=== PATIENT | male | born 1985 | race Caucasian/White ===

== ENCOUNTER 2020-03-31 21:47 | Emergency (ER) | payer OTHER ==
[~2020-03-31] VITALS: Ht 175.3 cm; Wt 82.6 kg
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
[2020-03-31 22:32] LABS: BASOPHILS # (AUTO) 0.1 /CMM (0.0-0.2); BASOPHILS % (AUTO) 1.2 % (0.0-2.0); EOSINOPHILS % (AUTO) 1.6 % (0.0-6.0); HEMATOCRIT 41 % (39-51); HEMOGLOBIN 14.1 g/dL (13.5-17.5); LYMPHOCYTES # (AUTO) 1.8 /CMM (0.8-4.8); LYMPHOCYTES % (AUTO) 40.9 % (20.0-44.0); MEAN CORPUSCULAR HGB CONC 34 g/dl (31.0-36.0); MEAN CORPUSCULAR VOLUME 100 fL (80-96); MONOCYTES # (AUTO) 0.3 /CMM (0.1-1.30); MONOCYTES % (AUTO) 6.9 % (2.0-12.0); NEUTROPHILS # (AUTO) 2.2 /CMM (1.8-8.9); NEUTROPHILS % (AUTO) 49.4 % (43.0-81.0); PLATELET COUNT (AUTO) 240 /CMM (150-450); RED BLOOD CELL COUNT(AUTO) 4.11 MIL/uL (4.5-6.0); WHITE BLOOD COUNT (AUTO) 4.4 K/uL (4.3-11.0)
--- NOTE | 2020-03-31 22:34 | NUR ---
PT RETURNED FROM CT
[2020-03-31 22:37] LABS: CALCIUM, SERUM 8.9 mg/dL (8.5-10.1); CARBON DIOXIDE 25 mmol/L (21-32); CHLORIDE 104 mmol/L (98-107); CREATININE 0.8 mg/dL (0.6-1.3); GLUCOSE 87 mg/dL (74-106); POTASSIUM 3.8 mmol/L (3.5-5.1); SODIUM SERUM 139 mmol/L (136-145); UREA NITROGEN, BLOOD 6 mg/dL (7-18)
[2020-03-31] MEDS ORDERED: CEFTRIAXONE 500 MG VIAL ONE (22:38)
[2020-03-31] MEDS ORDERED: LIDOCAINE /MPF 1% VIAL 5 ML VIAL ONE (22:39)
[2020-03-31] MEDS ORDERED: AZITHROMYCIN 250 MG TABLET ONE (22:39)
[2020-03-31 22:43] LABS: ALANINE AMINOTRANSFERASE 25 U/L (12-78); ALBUMIN 3.4 g/dL (3.4-5.0); ALCOHOL, BLOOD < 3 mg/dL (0-0); ALKALINE PHOSPHATASE 82 U/L (46-116); ASPARTATE AMINOTRANSFERASE 30 U/L (15-37); BILIRUBIN,DIRECT 0.1 mg/dL (0.0-0.2); BILIRUBIN,TOTAL 0.2 mg/dL (0.2-1.0); TOTAL PROTEIN, SERUM 7.7 g/dL (6.4-8.2)
[2020-03-31] MEDS: CEFTRIAXONE 500 MG VIAL IM ONE (22:46)
[2020-03-31] MEDS: AZITHROMYCIN 250 MG TABLET PO ONE (22:46)
[2020-03-31 22:49] LABS: BILIRUBIN,URINE NEGATIVE (NEGATIVE); BLOOD, URINE NEGATIVE Ery/uL (NEGATIVE); COLOR,URINE YELLOW (YELLOW); LEUKOCYTE ESTERASE ,URINE NEGATIVE (NEGATIVE); NITRITE, URINE NEGATIVE (NEGATIVE); PROTEIN,URINE NEGATIVE (NEGATIVE); UGLUCOSE NEGATIVE (NEGATIVE); UROBILINOGEN,URINE 0.2 EU/dL (0.2)
[2020-03-31 22:50] LABS: ACETAMINOPHEN < 10 ug/ml (10-30)
--- NOTE | 2020-03-31 23:36 | NUR ---
CLINICAL FAXED TO [facility] INTAKE FOR VOLUNTARY PSYCH ADMISSION.
--- NOTE | 2020-04-01 00:07 | NUR ---
pt verbalized that his plan is to jump off a bridge.
--- NOTE | 2020-04-01 02:20 | NUR ---
TRANSFER INFORMATION: PT ACCEPTED TO [facility] ACCEPTING MD: DR. MEDINA NUMBER FOR REPORT: [phone]
--- NOTE | 2020-04-01 02:31 | NUR ---
CALLED CALL THE CAR FOR TRANSPORTATION. WILL CALL BACK WITH ETA. RESERVATION #[id number]
--- NOTE | 2020-04-01 02:46 | NUR ---
MAAM-YDU-XRH CALLED REGARDING TRANSPORT ETA 90MIN ([facility]).
--- NOTE | 2020-04-01 02:59 | NUR ---
REPORT GIVEN TO JUSTIN ALVARADO FOR SHANTHI. BED ASSIGNMENT 531P
--- NOTE | 2020-04-01 03:22 | NUR ---
REPORT GIVEN [facility] FOR TRANSPORTATION SHANTHI. PT TRANSFERRED TO [facility] IN STABLE CONDITION
[2020-04-01 03:24] VITALS: BP 128/75
== END 2020-04-01 03:25 ==
LOC: EDSEX 21:50 → ER 21:50
DX: S09.90XA Unspecified injury of head, initial encounter (principal); Y09 Assault by unspecified means; Y92.89 Other specified places as the place of occurrence of the external cause; Z59.0 Homelessness; F15.10 Other stimulant abuse, uncomplicated; Z20.2 Contact with and (suspected) exposure to infections with a predominantly sexual mode of transmission; F32.9 Major depressive disorder, single episode, unspecified; R45.851 Suicidal ideations; Z20.828 Contact with and (suspected) exposure to other viral communicable diseases
CPT/HCPCS: 36415; 70450; 80048; 80076; 80299; 80307; 80320; 81001; 85025; 87426; 87491; 87591; 96372; 99285; C9803; J0696; J3490; G0480

== ENCOUNTER 2020-06-02 01:55 | Emergency (ER) | payer OTHER ==
[~2020-06-02] VITALS: Ht 175.3 cm; Wt 81.6 kg
--- NOTE | 2020-06-02 02:47 | NUR ---
.COVID SWAB COLLECTED AND SENT TO LAB
[2020-06-02 03:01] LABS: BASOPHILS % (AUTO) 0.8 % (0.0-2.0); EOSINOPHILS % (AUTO) 3.2 % (0.0-6.0); HEMATOCRIT 45 % (39-51); HEMOGLOBIN 15.2 g/dL (13.5-17.5); LYMPHOCYTES # (AUTO) 1.4 /CMM (0.8-4.8); MEAN CORPUSCULAR HGB CONC 34 g/dl (31.0-36.0); MEAN CORPUSCULAR VOLUME 97 fL (80-96); MONOCYTES # (AUTO) 0.3 /CMM (0.1-1.30); NEUTROPHILS # (AUTO) 1.4 /CMM (1.8-8.9); PLATELET COUNT (AUTO) 216 /CMM (150-450); RED BLOOD CELL COUNT(AUTO) 4.57 MIL/uL (4.5-6.0); WHITE BLOOD COUNT (AUTO) 3.2 K/uL (4.3-11.0)
[2020-06-02 03:34] LABS: BILIRUBIN,URINE NEGATIVE (NEGATIVE); COLOR,URINE YELLOW (YELLOW); LEUKOCYTE ESTERASE ,URINE NEGATIVE (NEGATIVE); NITRITE, URINE NEGATIVE (NEGATIVE); PROTEIN,URINE NEGATIVE (NEGATIVE); UGLUCOSE NEGATIVE (NEGATIVE); UROBILINOGEN,URINE 0.2 EU/dL (0.2)
[2020-06-02 04:34] LABS: CALCIUM, SERUM 9.6 mg/dL (8.5-10.1); CARBON DIOXIDE 24 mmol/L (21-32); CHLORIDE 103 mmol/L (98-107); CREATININE 0.9 mg/dL (0.6-1.3); GLUCOSE 85 mg/dL (74-106); POTASSIUM 3.9 mmol/L (3.5-5.1); SODIUM SERUM 138 mmol/L (136-145); UREA NITROGEN, BLOOD 15 mg/dL (7-18)
[2020-06-02 04:40] LABS: ALANINE AMINOTRANSFERASE 34 U/L (12-78); ALCOHOL, BLOOD 6 mg/dL (0-0); ALKALINE PHOSPHATASE 71 U/L (46-116); ASPARTATE AMINOTRANSFERASE 42 U/L (15-37); BILIRUBIN,DIRECT 0.2 mg/dL (0.0-0.2); BILIRUBIN,TOTAL 0.6 mg/dL (0.2-1.0); TOTAL PROTEIN, SERUM 8.3 g/dL (6.4-8.2)
[2020-06-02 04:43] LABS: ACETAMINOPHEN < 2 ug/ml (10-30)
--- NOTE | 2020-06-02 05:29 | NUR ---
Call from [facility]. Pt accepted to [facility] by Dr Bell. # for report [phone]
--- NOTE | 2020-06-02 05:33 | NUR ---
[facility] CALL THE CAR CALLED FOR TRANSPORT. TRIP# [id number]
[2020-06-02 05:51] VITALS: BP 129/71
--- NOTE | 2020-06-02 05:54 | NUR ---
REPORT GIVEN TO LONG ANDERSON FOR SHANTHI
--- NOTE | 2020-06-02 07:20 | NUR ---
Patient transported at [facility] by casino shift manager.
== END 2020-06-02 09:58 ==
LOC: ER 01:59
DX: R45.851 Suicidal ideations (principal); F12.10 Cannabis abuse, uncomplicated; Z20.822 Contact with and (suspected) exposure to COVID-19
CPT/HCPCS: 36415; 80048; 80076; 80299; 80307; 80320; 81003; 85025; 87426; 99285; C9803; G0480

== ENCOUNTER 2020-06-30 19:57 | Emergency (ER) | payer OTHER ==
[~2020-06-30] VITALS: Ht 175.3 cm; Wt 79.4 kg
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
--- NOTE | 2020-06-30 20:21 | NUR ---
JANNY HEAD AT BEDSIDE FOR RECTAL EXAM CHAPERONED BY ME
[2020-06-30] MEDS ORDERED: TDAP [DIPH/PERTUSSIS/TET] 0.5 ML VIAL IM ONE ×2 (20:30→20:48)
[2020-06-30 20:33] LABS: BASOPHILS % (AUTO) 0.6 % (0.0-2.0); EOSINOPHILS % (AUTO) 0.5 % (0.0-6.0); HEMATOCRIT 43 % (39-51); HEMOGLOBIN 15.1 g/dL (13.5-17.5); LYMPHOCYTES # (AUTO) 1.7 /CMM (0.8-4.8); LYMPHOCYTES % (AUTO) 35.7 % (20.0-44.0); MEAN CORPUSCULAR HGB CONC 35 g/dl (31.0-36.0); MEAN CORPUSCULAR VOLUME 95 fL (80-96); MONOCYTES # (AUTO) 0.4 /CMM (0.1-1.30); MONOCYTES % (AUTO) 9.5 % (2.0-12.0); NEUTROPHILS # (AUTO) 2.5 /CMM (1.8-8.9); NEUTROPHILS % (AUTO) 53.7 % (43.0-81.0); PLATELET COUNT (AUTO) 187 /CMM (150-450); RED BLOOD CELL COUNT(AUTO) 4.56 MIL/uL (4.5-6.0); WHITE BLOOD COUNT (AUTO) 4.6 K/uL (4.3-11.0)
[2020-06-30 20:53] LABS: CALCIUM, SERUM 8.7 mg/dL (8.5-10.1); CARBON DIOXIDE 26 mmol/L (21-32); CHLORIDE 102 mmol/L (98-107); CREATININE 0.8 mg/dL (0.6-1.3); GLUCOSE 103 mg/dL (74-106); POTASSIUM 3.3 mmol/L (3.5-5.1); SODIUM SERUM 138 mmol/L (136-145); UREA NITROGEN, BLOOD 6 mg/dL (7-18)
[2020-06-30 20:59] LABS: ACETAMINOPHEN < 2 ug/ml (10-30); ALANINE AMINOTRANSFERASE 65 U/L (12-78); ALBUMIN 3.4 g/dL (3.4-5.0); ALCOHOL, BLOOD 124 mg/dL (0-0); ALKALINE PHOSPHATASE 98 U/L (46-116); ASPARTATE AMINOTRANSFERASE 90 U/L (15-37); BILIRUBIN,DIRECT 0.1 mg/dL (0.0-0.2); BILIRUBIN,TOTAL 0.4 mg/dL (0.2-1.0)
[2020-06-30] MEDS ORDERED: IBUPROFEN 600 MG TABLET ONE (21:50)
[2020-06-30] MEDS ORDERED: IBUPROFEN 600 MG TABLET PO ONE (22:00)
[2020-06-30 22:02] LABS: BILIRUBIN,URINE Negative (NEGATIVE); COLOR,URINE YELLOW (YELLOW); LEUKOCYTE ESTERASE ,URINE Negative (NEGATIVE); NITRITE, URINE Negative (NEGATIVE); PH,URINE 6.5 (5.0-8.0); PROTEIN,URINE Negative (NEGATIVE); UGLUCOSE Negative (NEGATIVE); UROBILINOGEN,URINE 0.2 EU/dL (0.2)
--- NOTE | 2020-06-30 23:03 | NUR ---
COVID SWAB SEN TO LAB
--- NOTE | 2020-07-01 01:00 | NUR ---
Facesheet and clinical faxed to [facility].
--- NOTE | 2020-07-01 08:00 | NUR ---
PT ASLEEP, EASILY AWAKEN BY VERBAL STIMULI. DENIES CP, SOB, DIZZINESS, N/V AT THIS TIME. WILL CONT TO MONITOR. SITTER AT BS.
--- NOTE | 2020-07-01 11:27 | NUR ---
Patient Tranfers to outside Facility Physician:Dr. blackburn Location:[address] [address] number for report [phone]
--- NOTE | 2020-07-01 11:37 | NUR ---
CALLED [id number] TRANSFER # [phone] PER PAT. WILL CALL US WHEN THEY HAVE AMBULANCE.
--- NOTE | 2020-07-01 12:07 | NUR ---
TRANSPORT ETA 1 HOUR. [facility].
[2020-07-01 12:51] VITALS: BP 139/87
== END 2020-07-01 12:54 ==
LOC: ER 19:59
DX: R45.851 Suicidal ideations (principal); T76.21XA Adult sexual abuse, suspected, initial encounter; S01.511A Laceration without foreign body of lip, initial encounter; Z20.822 Contact with and (suspected) exposure to COVID-19; K62.89 Other specified diseases of anus and rectum; Z59.0 Homelessness; F10.129 Alcohol abuse with intoxication, unspecified; Y90.6 Blood alcohol level of 120-199 mg/100 ml; F41.9 Anxiety disorder, unspecified; R51.9 Headache, unspecified; F17.200 Nicotine dependence, unspecified, uncomplicated
CPT/HCPCS: 36415; 70450; 74018; 80048; 80076; 80299; 80307; 80320; 81003; 85025; 87426; 90471; 90715; 99285; C9803; G0480

== ENCOUNTER 2020-08-06 13:01 | Emergency (ER) | payer OTHER ==
[~2020-08-06] VITALS: Ht 175.3 cm; Wt 79.4 kg
--- NOTE | 2020-08-06 13:01 | NUR ---
PT BIB SELF C/O FOR MED CLEARANCE FOR [facility]. PT IS AAOX4, NOT IN RESPIRATORY DISTRESS, V/S STABLE, KEPT RESTED AND COMFORTABLE. WILL CONTINUE TO MONITOR.
--- NOTE | 2020-08-06 13:15 | NUR ---
SEEN AND EXAMINED BY .
--- NOTE | 2020-08-06 13:19 | NUR ---
URINE SPECIMEN COLLECTED AND SENT TO LAB.
--- NOTE | 2020-08-06 13:22 | NUR ---
ER PHLEB AT BEDSIDE FOR BLOOD DRAW.
[2020-08-06 13:28] LABS: BILIRUBIN,URINE Negative (NEGATIVE); COLOR,URINE YELLOW (YELLOW); LEUKOCYTE ESTERASE ,URINE Negative (NEGATIVE); NITRITE, URINE Negative (NEGATIVE); PH,URINE 5.5 (5.0-8.0); PROTEIN,URINE Negative (NEGATIVE); UGLUCOSE Negative (NEGATIVE); UROBILINOGEN,URINE 0.2 EU/dL (0.2)
[2020-08-06 13:30] LABS: BASOPHILS % (AUTO) 1.1 % (0.0-2.0); EOSINOPHILS % (AUTO) 1.9 % (0.0-6.0); HEMATOCRIT 44 % (39-51); LYMPHOCYTES # (AUTO) 1.2 /CMM (0.8-4.8); LYMPHOCYTES % (AUTO) 32.7 % (20.0-44.0); MEAN CORPUSCULAR HGB CONC 34 g/dl (31.0-36.0); MEAN CORPUSCULAR VOLUME 96 fL (80-96); MONOCYTES # (AUTO) 0.2 /CMM (0.1-1.30); MONOCYTES % (AUTO) 5.6 % (2.0-12.0); NEUTROPHILS # (AUTO) 2.2 /CMM (1.8-8.9); NEUTROPHILS % (AUTO) 58.7 % (43.0-81.0); PLATELET COUNT (AUTO) 178 /CMM (150-450); RED BLOOD CELL COUNT(AUTO) 4.61 MIL/uL (4.5-6.0); WHITE BLOOD COUNT (AUTO) 3.7 K/uL (4.3-11.0)
[2020-08-06 13:43] LABS: RBC,URINE 0-2 /HPF (0-2); WBC,URINE 0-2 /HPF (0-3)
[2020-08-06 13:44] LABS: BACTERIA,URINE Rare /HPF (None Seen); SQUAMOUS EPITHELIAL CELL,UR 0-2 /HPF (None Seen)
[2020-08-06 13:48] LABS: ALANINE AMINOTRANSFERASE 24 U/L (12-78); ALBUMIN 3.7 g/dL (3.4-5.0); ALCOHOL, BLOOD < 3 mg/dL (0-0); ALKALINE PHOSPHATASE 73 U/L (46-116); ASPARTATE AMINOTRANSFERASE 28 U/L (15-37); BILIRUBIN,DIRECT 0.2 mg/dL (0.0-0.2); BILIRUBIN,TOTAL 0.7 mg/dL (0.2-1.0); CARBON DIOXIDE 28 mmol/L (21-32); CHLORIDE 105 mmol/L (98-107); CREATININE 0.9 mg/dL (0.6-1.3); GLUCOSE 105 mg/dL (74-106); POTASSIUM 3.7 mmol/L (3.5-5.1); SODIUM SERUM 139 mmol/L (136-145); TOTAL PROTEIN, SERUM 8.1 g/dL (6.4-8.2); UREA NITROGEN, BLOOD 11 mg/dL (7-18)
[2020-08-06 13:54] LABS: CALCIUM, SERUM 8.8 mg/dL (8.5-10.1)
[2020-08-06 13:56] LABS: ACETAMINOPHEN < 10 ug/ml (10-30)
[2020-08-06] MEDS ORDERED: OLANZAPINE 5 MG TABLET ONE (18:30)
[2020-08-06] MEDS ORDERED: OLANZAPINE 5 MG TABLET PO ONE (18:30)
--- NOTE | 2020-08-06 22:15 | NUR ---
Pt accepted to [facility], Unit [address], by Dr Wall. # for report
--- NOTE | 2020-08-06 22:47 | NUR ---
ETA FOR TRANSPORT TO [facility] PER [facility]CAR IS 1 HOUR VIA [facility]
--- NOTE | 2020-08-06 22:50 | NUR ---
REPORT GIVEN TO JUSTIN LOPEZ FROM [facility] FOR SHANTHI
[2020-08-07 01:04] VITALS: BP 128/77
--- NOTE | 2020-08-07 01:04 | NUR ---
REPORT GIVEN TO [facility] FOR TRANSPORTATION SHANTHI
== END 2020-08-07 01:05 ==
LOC: ER 13:06
DX: R45.851 Suicidal ideations (principal); F32.9 Major depressive disorder, single episode, unspecified; Z91.14 Patient's other noncompliance with medication regimen; Z59.0 Homelessness; Z20.822 Contact with and (suspected) exposure to COVID-19
CPT/HCPCS: 36415; 80048; 80076; 80299; 80307; 80320; 81001; 85025; 87426; 99285; A6407; C9803; G0480

== ENCOUNTER 2020-08-23 18:11 | Emergency (ER) | payer OTHER ==
[~2020-08-23] VITALS: Ht 175.3 cm; Wt 71.2 kg
--- NOTE | 2020-08-23 18:11 | NUR ---
PT BIB SELF C/O SI "I WANT TO OD ON PILLS" PT IS AAOX4, NOT IN RESPIRATORY DISTRESS, V/S STABLE, KEPT RESTED AND COMFORTABLE. WILL CONTINUE TO MONITOR.
--- NOTE | 2020-08-23 18:38 | NUR ---
PT SEEN AND EXAMINED BY JAYLA SOLIMAN.
--- NOTE | 2020-08-23 18:50 | NUR ---
ER PHLEB AT BEDSIDE FOR BLOOD DRAW.
[2020-08-23 18:59] LABS: BASOPHILS % (AUTO) 0.6 % (0.0-2.0); EOSINOPHILS % (AUTO) 2.1 % (0.0-6.0); HEMATOCRIT 47 % (39-51); HEMOGLOBIN 16.2 g/dL (13.5-17.5); LYMPHOCYTES # (AUTO) 1.2 /CMM (0.8-4.8); LYMPHOCYTES % (AUTO) 29.7 % (20.0-44.0); MEAN CORPUSCULAR HGB CONC 35 g/dl (31.0-36.0); MEAN CORPUSCULAR VOLUME 95 fL (80-96); MONOCYTES # (AUTO) 0.2 /CMM (0.1-1.30); MONOCYTES % (AUTO) 4.5 % (2.0-12.0); NEUTROPHILS # (AUTO) 2.5 /CMM (1.8-8.9); NEUTROPHILS % (AUTO) 63.1 % (43.0-81.0); PLATELET COUNT (AUTO) 195 /CMM (150-450); RED BLOOD CELL COUNT(AUTO) 4.92 MIL/uL (4.5-6.0); WHITE BLOOD COUNT (AUTO) 3.9 K/uL (4.3-11.0)
[2020-08-23] MEDS ORDERED: AZITHROMYCIN 250 MG TABLET PO ONE (19:00)
[2020-08-23] MEDS ORDERED: PENICILLIN G BENZATHINE 2.4 MMU/4 ML ML IM ONE ×2 (19:00→19:05)
[2020-08-23] MEDS ORDERED: CEFTRIAXONE 1 G VIAL IM ONE (19:00)
[2020-08-23 19:01] LABS: BILIRUBIN,URINE Negative (NEGATIVE); COLOR,URINE YELLOW (YELLOW); LEUKOCYTE ESTERASE ,URINE Negative (NEGATIVE); NITRITE, URINE Negative (NEGATIVE); PROTEIN,URINE Negative (NEGATIVE); UGLUCOSE Negative (NEGATIVE); UROBILINOGEN,URINE 0.2 EU/dL (0.2)
[2020-08-23 19:05] LABS: CARBON DIOXIDE 29 mmol/L (21-32); CHLORIDE 99 mmol/L (98-107); GLUCOSE 194 mg/dL (74-106); POTASSIUM 3.4 mmol/L (3.5-5.1); SODIUM SERUM 136 mmol/L (136-145); UREA NITROGEN, BLOOD 11 mg/dL (7-18)
[2020-08-23] MEDS ORDERED: AZITHROMYCIN 250 MG TABLET ONE (19:05)
[2020-08-23] MEDS ORDERED: CEFTRIAXONE 1 G VIAL ONE (19:05)
[2020-08-23] MEDS ORDERED: LIDOCAINE /MPF 1% VIAL 5 ML VIAL ONE (19:05)
[2020-08-23 19:11] LABS: ALANINE AMINOTRANSFERASE 33 U/L (12-78); ALKALINE PHOSPHATASE 77 U/L (46-116); ASPARTATE AMINOTRANSFERASE 40 U/L (15-37); BILIRUBIN,DIRECT 0.2 mg/dL (0.0-0.2); BILIRUBIN,TOTAL 0.7 mg/dL (0.2-1.0); TOTAL PROTEIN, SERUM 8.4 g/dL (6.4-8.2)
[2020-08-23 20:09] LABS: ACETAMINOPHEN < 2 ug/ml (10-30); ALCOHOL, BLOOD < 3 mg/dL (0-0)
--- NOTE | 2020-08-23 20:10 | NUR ---
Call from lab. Rapid covid negative.
--- NOTE | 2020-08-23 20:25 | NUR ---
Facesheet and clinicals faxed to [facility].
--- NOTE | 2020-08-24 03:27 | NUR ---
ACCEPTED [facility]: DR GRIFFITH UNIT 1 REPORT [phone]
--- NOTE | 2020-08-24 03:37 | NUR ---
LA Sanjuana Call the car called for transport. Trip#[phone]
[2020-08-24 05:02] VITALS: BP 146/67
--- NOTE | 2020-08-24 05:02 | NUR ---
[facility] at bedside for transport to [facility].
--- NOTE | 2020-08-24 05:03 | NUR ---
PT LEFT TO [facility]. VSS. NAD ALL BELONGINGS WITH PATIENT
--- NOTE | 2020-08-24 05:03 | NUR ---
REPORT GIVEN TO KYE AT N.
== END 2020-08-24 05:04 ==
LOC: ER 18:14
DX: F32.9 Major depressive disorder, single episode, unspecified (principal); R45.851 Suicidal ideations; Z59.0 Homelessness; F15.10 Other stimulant abuse, uncomplicated; F17.210 Nicotine dependence, cigarettes, uncomplicated; Z20.822 Contact with and (suspected) exposure to COVID-19; R73.9 Hyperglycemia, unspecified; F41.9 Anxiety disorder, unspecified; Z20.2 Contact with and (suspected) exposure to infections with a predominantly sexual mode of transmission
CPT/HCPCS: 36415; 80048; 80076; 80299; 80307; 80320; 81003; 85025; 87086; 87426; 96372 ×2; 99285; 99406; C9803; J0558; J0696; J3490; G0480

== ENCOUNTER 2020-09-22 20:38 | Emergency (ER) | payer OTHER ==
[~2020-09-22] VITALS: Ht 175.3 cm; Wt 80.3 kg
--- NOTE | 2020-09-22 20:45 | NUR ---
PT CAME TO THE ER C/O SI W/ A PLAN TO OD ON DRUGS. PT AAO4, RESPIRATIONS EVEN AND UNLABORED. SAFETY PRECAUTIONS IMPLEMENTED. SITTER AT BEDSIDE FOR SAFETY. PT CONNECTED TO THE MONITOR AND POX. WILL CONTINUE TO MONITOR PT
--- NOTE | 2020-09-22 21:19 | NUR ---
COVID SWAB SENT TO LAB
[2020-09-22 21:27] LABS: BASOPHILS % (AUTO) 0.7 % (0.0-2.0); EOSINOPHILS % (AUTO) 0.7 % (0.0-6.0); HEMATOCRIT 41 % (39-51); HEMOGLOBIN 13.9 g/dL (13.5-17.5); LYMPHOCYTES # (AUTO) 1.5 /CMM (0.8-4.8); LYMPHOCYTES % (AUTO) 28.3 % (20.0-44.0); MEAN CORPUSCULAR HGB CONC 34 g/dl (31.0-36.0); MEAN CORPUSCULAR VOLUME 95 fL (80-96); MONOCYTES # (AUTO) 0.4 /CMM (0.1-1.30); MONOCYTES % (AUTO) 6.9 % (2.0-12.0); NEUTROPHILS # (AUTO) 3.3 /CMM (1.8-8.9); NEUTROPHILS % (AUTO) 63.4 % (43.0-81.0); PLATELET COUNT (AUTO) 182 /CMM (150-450); WHITE BLOOD COUNT (AUTO) 5.2 K/uL (4.3-11.0)
[2020-09-22 21:33] LABS: BILIRUBIN,URINE Negative (NEGATIVE); COLOR,URINE YELLOW (YELLOW); LEUKOCYTE ESTERASE ,URINE Negative (NEGATIVE); NITRITE, URINE Negative (NEGATIVE); PH,URINE 6.5 (5.0-8.0); PROTEIN,URINE Negative (NEGATIVE); UGLUCOSE Negative (NEGATIVE); UROBILINOGEN,URINE 0.2 EU/dL (0.2)
[2020-09-22 21:39] LABS: CALCIUM, SERUM 8.8 mg/dL (8.5-10.1); CARBON DIOXIDE 27 mmol/L (21-32); CHLORIDE 102 mmol/L (98-107); CREATININE 0.8 mg/dL (0.6-1.3); GLUCOSE 88 mg/dL (74-106); POTASSIUM 3.8 mmol/L (3.5-5.1); SODIUM SERUM 135 mmol/L (136-145); UREA NITROGEN, BLOOD 18 mg/dL (7-18)
[2020-09-22 21:44] LABS: ACETAMINOPHEN < 2 ug/ml (10-30); ALANINE AMINOTRANSFERASE 23 U/L (12-78); ALBUMIN 3.4 g/dL (3.4-5.0); ALCOHOL, BLOOD < 3 mg/dL (0-0); ALKALINE PHOSPHATASE 53 U/L (46-116); ASPARTATE AMINOTRANSFERASE 24 U/L (15-37); BILIRUBIN,DIRECT 0.1 mg/dL (0.0-0.2); BILIRUBIN,TOTAL 0.2 mg/dL (0.2-1.0); TOTAL PROTEIN, SERUM 7.1 g/dL (6.4-8.2)
[2020-09-23] MEDS ORDERED: LORAZEPAM 1 MG TABLET PO ONE
--- NOTE | 2020-09-23 00:09 | NUR ---
FACESHEET AND CLINICALS FAXED TO [facility].
[2020-09-23] MEDS ORDERED: LORAZEPAM 1 MG TABLET ONE (02:31)
[2020-09-23 03:11] VITALS: BP 115/71
--- NOTE | 2020-09-23 03:47 | NUR ---
[facility] UNIT[facility]
--- NOTE | 2020-09-23 03:59 | NUR ---
[facility] CALL THE CAR CALLED FOR TRANSPORT. TRIP# [id number]
--- NOTE | 2020-09-23 04:15 | NUR ---
[facility] ETA 30 MINUTES.
--- NOTE | 2020-09-23 04:20 | NUR ---
Leah piña in [facility] - 09/23/20 at 0420 by MIGUEL REPORT GIVEN TO JUSTIN YORK FOR SHANTHI
--- NOTE | 2020-09-23 04:20 | NUR ---
REPORT GIVEN TP JUSTIN YORK FOR SHANTHI
--- NOTE | 2020-09-23 04:23 | NUR ---
REPORT GIVEN TO [facility] FOR SHANTHI
--- NOTE | 2020-09-23 04:30 | NUR ---
[facility] AT BEDSIDE FOR TRANSPORT TO [facility].
== END 2020-09-23 05:57 ==
LOC: ER 20:39
DX: R45.851 Suicidal ideations (principal); F32.9 Major depressive disorder, single episode, unspecified; Z59.0 Homelessness; Z20.822 Contact with and (suspected) exposure to COVID-19; F19.10 Other psychoactive substance abuse, uncomplicated; S09.90XA Unspecified injury of head, initial encounter; Y09 Assault by unspecified means; Y92.89 Other specified places as the place of occurrence of the external cause
CPT/HCPCS: 36415; 70450; 71045; 72125; 80048; 80076; 80299; 80307; 80320; 81003; 85025; 87426; 99285; C9803; G0480

== ENCOUNTER 2020-10-17 01:16 | Emergency (ER) | payer OTHER ==
[~2020-10-17] VITALS: Ht 175.3 cm; Wt 81.6 kg
--- NOTE | 2020-10-17 01:35 | NUR ---
BIBSELF C/O SUICIDAL IDEATION WITH PLAN TO OVERDOSE. REQUESTING VOLUNATRY ADMISSION TO PSYCH FACILITY. PT AAOX4. CALM AND COOPERATIVE. VITAL SIGNS STABLE. RESPIRATIONS EVEN AND UNLABORED. NO ACUTE DISTRESS NOTED AT THIS TIME. SUICIDAL PRECAUTIONS INITIATED, WILL CONTINUE TO MONITOR
--- NOTE | 2020-10-17 01:36 | NUR ---
URINE COLLECTED AND SENT TO LAB
[2020-10-17 01:57] LABS: BILIRUBIN,URINE SMALL (NEGATIVE); COLOR,URINE YELLOW (YELLOW); LEUKOCYTE ESTERASE ,URINE Negative (NEGATIVE); NITRITE, URINE Negative (NEGATIVE); PH,URINE 6.5 (5.0-8.0); PROTEIN,URINE 30 mg/dl (NEGATIVE); UGLUCOSE Negative (NEGATIVE); UROBILINOGEN,URINE 0.2 EU/dL (0.2)
[2020-10-17 03:40] LABS: BASOPHILS % (AUTO) 0.4 % (0.0-2.0); EOSINOPHILS % (AUTO) 1.4 % (0.0-6.0); HEMATOCRIT 42 % (39-51); HEMOGLOBIN 14.3 g/dL (13.5-17.5); LYMPHOCYTES # (AUTO) 1.2 /CMM (0.8-4.8); LYMPHOCYTES % (AUTO) 31.5 % (20.0-44.0); MEAN CORPUSCULAR HGB CONC 34 g/dl (31.0-36.0); MEAN CORPUSCULAR VOLUME 96 fL (80-96); MONOCYTES # (AUTO) 0.5 /CMM (0.1-1.30); MONOCYTES % (AUTO) 13.2 % (2.0-12.0); NEUTROPHILS % (AUTO) 53.5 % (43.0-81.0); PLATELET COUNT (AUTO) 193 /CMM (150-450); RED BLOOD CELL COUNT(AUTO) 4.36 MIL/uL (4.5-6.0); WHITE BLOOD COUNT (AUTO) 3.8 K/uL (4.3-11.0)
[2020-10-17 03:41] LABS: ALANINE AMINOTRANSFERASE 53 U/L (12-78); ALBUMIN 3.8 g/dL (3.4-5.0); ALKALINE PHOSPHATASE 76 U/L (46-116); ASPARTATE AMINOTRANSFERASE 81 U/L (15-37); BILIRUBIN,DIRECT 0.2 mg/dL (0.0-0.2); BILIRUBIN,TOTAL 0.8 mg/dL (0.2-1.0); CALCIUM, SERUM 8.7 mg/dL (8.5-10.1); CARBON DIOXIDE 28 mmol/L (21-32); CHLORIDE 102 mmol/L (98-107); CREATININE 0.9 mg/dL (0.6-1.3); GLUCOSE 107 mg/dL (74-106); POTASSIUM 3.8 mmol/L (3.5-5.1); TOTAL PROTEIN, SERUM 8.3 g/dL (6.4-8.2); UREA NITROGEN, BLOOD 13 mg/dL (7-18)
[2020-10-17 04:19] LABS: ACETAMINOPHEN 0 ug/ml (10-30); ALCOHOL, BLOOD < 3 mg/dL (0-0)
[2020-10-17 04:21] LABS: SODIUM SERUM 137 mmol/L (136-145)
--- NOTE | 2020-10-17 08:08 | NUR ---
THE PATIENT SLEEPING IN ER BED #15. PATIENT IS IN NO APPARENT DISTRESS.
--- NOTE | 2020-10-17 09:46 | NUR ---
CALLED [facility] AND SPOKE TO MATT, PATIENT ACCEPTED TO [facility] BUT REQUESTING TO SEND PATIENT AFTER LUNCH 1200. PLEASE GIVE REPORT TO DEEPIKA AT [phone].
--- NOTE | 2020-10-17 10:53 | NUR ---
REPORT GIVEN TO NURSE JIMENEZ FROM [facility]
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
--- NOTE | 2020-10-17 11:49 | NUR ---
CALLED [facility] FOR TRANSPORT TO [facility]. ETA 30-45 MINUTES.
[2020-10-17 12:15] VITALS: BP 134/80
--- NOTE | 2020-10-17 12:44 | NUR ---
pt transported to [facility] in stable condition.
== END 2020-10-17 12:47 ==
LOC: ER 01:17
DX: Z02.2 Encounter for examination for admission to residential institution (principal); R45.851 Suicidal ideations; F15.10 Other stimulant abuse, uncomplicated; Z20.822 Contact with and (suspected) exposure to COVID-19; Z59.0 Homelessness
CPT/HCPCS: 36415; 80048; 80076; 80143; 80307; 80320; 81003; 85025; 87426; 99285; C9803; G0480

== ENCOUNTER 2020-10-29 17:37 | Emergency (ER) | payer OTHER ==
[~2020-10-29] VITALS: Ht 175.3 cm; Wt 81.6 kg
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
[2020-10-29 17:45] VITALS: BP 143/73
--- NOTE | 2020-10-29 17:51 | NUR ---
SEEN AND EXAMINED BY .
--- NOTE | 2020-10-29 17:58 | NUR ---
COVID SPECIMEN OBTAINED AND SENT TO LAB.
[2020-10-29 18:00] LABS: BASOPHILS % (AUTO) 0.8 % (0.0-2.0); EOSINOPHILS % (AUTO) 2.8 % (0.0-6.0); HEMATOCRIT 42 % (39-51); HEMOGLOBIN 14.1 g/dL (13.5-17.5); LYMPHOCYTES # (AUTO) 1.7 /CMM (0.8-4.8); LYMPHOCYTES % (AUTO) 37.5 % (20.0-44.0); MEAN CORPUSCULAR HGB CONC 34 g/dl (31.0-36.0); MEAN CORPUSCULAR VOLUME 96 fL (80-96); MONOCYTES # (AUTO) 0.4 /CMM (0.1-1.30); MONOCYTES % (AUTO) 8.4 % (2.0-12.0); NEUTROPHILS # (AUTO) 2.3 /CMM (1.8-8.9); NEUTROPHILS % (AUTO) 50.5 % (43.0-81.0); PLATELET COUNT (AUTO) 241 /CMM (150-450); RED BLOOD CELL COUNT(AUTO) 4.33 MIL/uL (4.5-6.0); WHITE BLOOD COUNT (AUTO) 4.5 K/uL (4.3-11.0)
--- NOTE | 2020-10-29 18:05 | NUR ---
PT IS WHEELED TO CT SCAN VIA [facility].
[2020-10-29 18:06] LABS: BILIRUBIN,URINE Negative (NEGATIVE); COLOR,URINE YELLOW (YELLOW); LEUKOCYTE ESTERASE ,URINE Negative (NEGATIVE); NITRITE, URINE Negative (NEGATIVE); PROTEIN,URINE Trace mg/dl (NEGATIVE); UGLUCOSE Negative (NEGATIVE); UROBILINOGEN,URINE 0.2 EU/dL (0.2)
[2020-10-29 18:11] LABS: CALCIUM, SERUM 8.4 mg/dL (8.5-10.1); CARBON DIOXIDE 24 mmol/L (21-32); CHLORIDE 105 mmol/L (98-107); CREATININE 0.8 mg/dL (0.6-1.3); GLUCOSE 81 mg/dL (74-106); POTASSIUM 3.8 mmol/L (3.5-5.1); SODIUM SERUM 138 mmol/L (136-145); UREA NITROGEN, BLOOD 11 mg/dL (7-18)
[2020-10-29 18:17] LABS: ALANINE AMINOTRANSFERASE 38 U/L (12-78); ALBUMIN 3.5 g/dL (3.4-5.0); ALCOHOL, BLOOD < 3 mg/dL (0-0); ALKALINE PHOSPHATASE 77 U/L (46-116); ASPARTATE AMINOTRANSFERASE 36 U/L (15-37); BILIRUBIN,DIRECT 0.1 mg/dL (0.0-0.2); BILIRUBIN,TOTAL 0.3 mg/dL (0.2-1.0); TOTAL PROTEIN, SERUM 7.7 g/dL (6.4-8.2)
[2020-10-29 18:18] LABS: ACETAMINOPHEN < 2 ug/ml (10-30)
[2020-10-29 18:30] LABS: BACTERIA,URINE Rare /HPF (None Seen); RBC,URINE 0-2 /HPF (0-2); WBC,URINE 0-2 /HPF (0-3)
[2020-10-29 18:31] LABS: SQUAMOUS EPITHELIAL CELL,UR Rare /HPF (None Seen)
--- NOTE | 2020-10-29 19:15 | NUR ---
LAB CALLED. TEST COVID NEGATIVE
--- NOTE | 2020-10-29 20:52 | NUR ---
FACESHEET AND CLINICALS FAXED TO [facility].
--- NOTE | 2020-10-30 01:44 | NUR ---
called in report to Mathieu
--- NOTE | 2020-10-30 01:59 | NUR ---
[id number] IS THE TRIP NUMBER PER YANETTER FROM CALLTHECAR. AWAITING A CALL BACK FOR [facility] FOR TRANSPORT.
--- NOTE | 2020-10-30 02:24 | NUR ---
CALL FROM CALL THE CAR W/ ETA 0330 w/ [facility]
--- NOTE | 2020-10-30 04:19 | NUR ---
pt transfered to [facility]
== END 2020-10-30 04:20 ==
LOC: ER 17:44
DX: R45.851 Suicidal ideations (principal); R51.9 Headache, unspecified; F15.10 Other stimulant abuse, uncomplicated; F41.9 Anxiety disorder, unspecified; Z59.0 Homelessness; Z20.822 Contact with and (suspected) exposure to COVID-19
CPT/HCPCS: 36415; 70450; 80048; 80076; 80143; 80307; 80320; 81001; 85025; 87426; 99285; C9803; G0480

== ENCOUNTER 2020-11-16 17:24 | Emergency (ER) | payer OTHER ==
[~2020-11-16] VITALS: Ht 170.2 cm; Wt 81.6 kg
--- NOTE | 2020-11-16 17:48 | NUR ---
PT SELF PRESENTS TO ED. AMBULATORY W. STEADY GAIT. PT IS C/O DEPRESSION W/ SI. NO SPECIFIC PLAN SENIOR RESEARCH ANALYST. PT SEEN IN ED MULTIPLE TIMES FOR SAME REASON. STABLE VITALS NAD NOTED. AWAITING MD MTZ.
--- NOTE | 2020-11-16 18:06 | NUR ---
LAURENP PA AT BEDSIDE FOR EVAL.
--- NOTE | 2020-11-16 18:19 | NUR ---
COVID SWAB DONE. SENT TO LAB.
[2020-11-16 18:48] LABS: BASOPHILS % (AUTO) 0.4 % (0.0-2.0); EOSINOPHILS % (AUTO) 2.5 % (0.0-6.0); HEMATOCRIT 41 % (39-51); LYMPHOCYTES # (AUTO) 1.7 K/uL (0.8-4.8); LYMPHOCYTES % (AUTO) 30.2 % (20.0-44.0); MEAN CORPUSCULAR HGB CONC 34 g/dl (31.0-36.0); MEAN CORPUSCULAR VOLUME 94 fL (80-96); MONOCYTES # (AUTO) 0.4 K/uL (0.1-1.30); MONOCYTES % (AUTO) 6.9 % (2.0-12.0); NEUTROPHILS # (AUTO) 3.4 K/uL (1.8-8.9); PLATELET COUNT (AUTO) 182 K/uL (150-450); RED BLOOD CELL COUNT(AUTO) 4.39 MIL/uL (4.5-6.0); WHITE BLOOD COUNT (AUTO) 5.7 K/uL (4.3-11.0)
--- NOTE | 2020-11-16 19:08 | NUR ---
CHILD WELFARE ASSISTANT AT BEDSIDE FOR BLOOD DRAW.
[2020-11-16 19:09] LABS: CALCIUM, SERUM 8.9 mg/dL (8.5-10.1); CARBON DIOXIDE 23 mmol/L (21-32); CHLORIDE 102 mmol/L (98-107); CREATININE 0.9 mg/dL (0.6-1.3); GLUCOSE 85 mg/dL (74-106); POTASSIUM 3.4 mmol/L (3.5-5.1); SODIUM SERUM 134 mmol/L (136-145); UREA NITROGEN, BLOOD 15 mg/dL (7-18)
[2020-11-16 19:12] LABS: ACETAMINOPHEN < 2 ug/ml (10-30); ALANINE AMINOTRANSFERASE 27 U/L (12-78); ALBUMIN 3.7 g/dL (3.4-5.0); ALCOHOL, BLOOD < 3 mg/dL (0-0); ALKALINE PHOSPHATASE 63 U/L (46-116); ASPARTATE AMINOTRANSFERASE 29 U/L (15-37); BILIRUBIN,DIRECT 0.2 mg/dL (0.0-0.2); BILIRUBIN,TOTAL 1.2 mg/dL (0.2-1.0); TOTAL PROTEIN, SERUM 7.6 g/dL (6.4-8.2)
[2020-11-16 21:40] LABS: BILIRUBIN,URINE NEGATIVE (NEGATIVE); COLOR,URINE YELLOW (YELLOW); LEUKOCYTE ESTERASE ,URINE NEGATIVE (NEGATIVE); NITRITE, URINE NEGATIVE (NEGATIVE); PH,URINE 6.5 (5.0-8.0); PROTEIN,URINE NEGATIVE (NEGATIVE); UGLUCOSE NEGATIVE (NEGATIVE); UROBILINOGEN,URINE 0.2 EU/dL (0.2)
--- NOTE | 2020-11-16 22:39 | NUR ---
FACESHEET AND CLINICALS FAXED TO [facility].
--- NOTE | 2020-11-17 01:06 | NUR ---
ACCEPTED BY DR. ORTIZ TO [facility] # FOR REPORT IS [phone] ext [phone].
--- NOTE | 2020-11-17 01:25 | NUR ---
[facility] CALL THE CAR CALLED FOR TRANSPORTATION. TRIP# [id number]
--- NOTE | 2020-11-17 01:28 | NUR ---
CALL FROM JEAN CALL THE CAR. [facility] ETA [phone]
--- NOTE | 2020-11-17 08:29 | NUR ---
CALLED [facility] BACK. ETA 45 MINUTES - 1 HOUR.
--- NOTE | 2020-11-17 09:40 | NUR ---
Report givevn to nurse Taylor from [facility].
--- NOTE | 2020-11-17 11:26 | NUR ---
CALLED FOR UPDATE WITH [facility] FOR TRANSPORTATION, ETA 12 NOON.
--- NOTE | 2020-11-17 12:41 | NUR ---
the patient is having lunch
--- NOTE | 2020-11-17 12:47 | NUR ---
CALLED FOR UPDATE WITH [facility] FOR TRANSPORTATION. ETA 30 MINUTES
[2020-11-17 15:19] VITALS: BP 120/73
--- NOTE | 2020-11-17 15:19 | NUR ---
REPORT GIVEN TO EMS FOR PT TRANSFER TO [facility]
== END 2020-11-17 15:20 ==
LOC: ER 17:32
DX: R45.851 Suicidal ideations (principal); F15.10 Other stimulant abuse, uncomplicated; Z59.0 Homelessness; Z20.822 Contact with and (suspected) exposure to COVID-19; T76.21XA Adult sexual abuse, suspected, initial encounter; F32.9 Major depressive disorder, single episode, unspecified
CPT/HCPCS: 36415; 80048; 80076; 80143; 80307; 80320; 81003; 85025; 87426; 99285; C9803; G0480

== ENCOUNTER 2020-12-03 14:58 | Emergency (ER) | payer OTHER ==
[~2020-12-03] VITALS: Ht 175.3 cm; Wt 82.6 kg
--- NOTE | 2020-12-03 15:03 | NUR ---
called in triage, no answer
--- NOTE | 2020-12-03 15:30 | NUR ---
PATIENT C/O SUICIDAL IDEATION, PLAN IS TO JUMP OFF THE BUILDING. PATIENT A/OX4, AMBULATORYW ITH STEADY GAIT. C/O MILD HEAD PAIN, WITH NO DISTRESS.
--- NOTE | 2020-12-03 15:35 | NUR ---
CALLED [facility].
[2020-12-03 15:40] LABS: BASOPHILS % (AUTO) 0.5 % (0.0-2.0); EOSINOPHILS % (AUTO) 1.9 % (0.0-6.0); HEMATOCRIT 41 % (39-51); HEMOGLOBIN 14.2 g/dL (13.5-17.5); LYMPHOCYTES # (AUTO) 1.8 K/uL (0.8-4.8); LYMPHOCYTES % (AUTO) 27.6 % (20.0-44.0); MEAN CORPUSCULAR HGB CONC 34 g/dl (31.0-36.0); MEAN CORPUSCULAR VOLUME 93 fL (80-96); MONOCYTES # (AUTO) 0.4 K/uL (0.1-1.30); MONOCYTES % (AUTO) 5.8 % (2.0-12.0); NEUTROPHILS # (AUTO) 4.2 K/uL (1.8-8.9); NEUTROPHILS % (AUTO) 64.2 % (43.0-81.0); PLATELET COUNT (AUTO) 233 K/uL (150-450); RED BLOOD CELL COUNT(AUTO) 4.46 MIL/uL (4.5-6.0); WHITE BLOOD COUNT (AUTO) 6.6 K/uL (4.3-11.0)
[2020-12-03 15:42] LABS: BILIRUBIN,URINE Negative (NEGATIVE); COLOR,URINE YELLOW (YELLOW); LEUKOCYTE ESTERASE ,URINE Negative (NEGATIVE); NITRITE, URINE Negative (NEGATIVE); PROTEIN,URINE Negative (NEGATIVE); UGLUCOSE Negative (NEGATIVE); UROBILINOGEN,URINE 0.2 EU/dL (0.2)
--- NOTE | 2020-12-03 15:45 | NUR ---
COVID SWAB SENT.
[2020-12-03 15:53] LABS: ALANINE AMINOTRANSFERASE 35 U/L (12-78); ALBUMIN 3.5 g/dL (3.4-5.0); ALCOHOL, BLOOD < 3 mg/dL (0-0); ALKALINE PHOSPHATASE 70 U/L (46-116); ASPARTATE AMINOTRANSFERASE 20 U/L (15-37); BILIRUBIN,DIRECT 0.1 mg/dL (0.0-0.2); BILIRUBIN,TOTAL 0.2 mg/dL (0.2-1.0); CALCIUM, SERUM 8.8 mg/dL (8.5-10.1); CARBON DIOXIDE 26 mmol/L (21-32); CHLORIDE 107 mmol/L (98-107); CREATININE 0.8 mg/dL (0.6-1.3); GLUCOSE 92 mg/dL (74-106); SODIUM SERUM 142 mmol/L (136-145); TOTAL PROTEIN, SERUM 7.8 g/dL (6.4-8.2); UREA NITROGEN, BLOOD 10 mg/dL (7-18)
[2020-12-03 16:07] LABS: ACETAMINOPHEN < 2 ug/ml (10-30)
--- NOTE | 2020-12-03 17:33 | NUR ---
FAXED CLINICALS TO [facility]
[2020-12-03] MEDS ORDERED: ACETAMINOPHEN 325 MG TABLET PO ONE (18:30)
[2020-12-03] MEDS ORDERED: IBUPROFEN 600 MG TABLET PO ONE (18:30)
[2020-12-03] MEDS ORDERED: ACETAMINOPHEN 325 MG TABLET ONE (18:36)
[2020-12-03] MEDS ORDERED: IBUPROFEN 600 MG TABLET ONE (18:37)
--- NOTE | 2020-12-03 19:04 | NUR ---
PATIENT RESTING, NO DISTRESS NOTED.
--- NOTE | 2020-12-03 19:18 | NUR ---
CALLED INTAKE PT ACCEPTED TO [facility] PLEASE CALL [phone] FOR REPORT AFTER 2029. WILL CALL US FOR ACCEPTING
--- NOTE | 2020-12-03 19:28 | NUR ---
CALLED FOR TRANSPORT WITH [facility] ASKED FOR 2044 ETA.
[2020-12-03 20:11] VITALS: BP 121/65
--- NOTE | 2020-12-03 20:12 | NUR ---
REPORT CALLED TO [facility] JUSTIN JIMENEZ. AWAITING TRANSPORT.
--- NOTE | 2020-12-03 20:19 | NUR ---
PT WILL GO TO ROOM 419-B
--- NOTE | 2020-12-03 20:46 | NUR ---
ACCPETING MD MEDINA. TRANSPORT AT [facility] REPORT GIVEN TO EMT.
== END 2020-12-03 20:58 ==
LOC: ER 15:05
DX: R45.851 Suicidal ideations (principal); S00.03XA Contusion of scalp, initial encounter; V49.9XXA Car occupant (driver) (passenger) injured in unspecified traffic accident, initial encounter; Y92.410 Unspecified street and highway as the place of occurrence of the external cause; M54.5 Low back pain; Z59.0 Homelessness; F41.9 Anxiety disorder, unspecified; Z20.822 Contact with and (suspected) exposure to COVID-19
CPT/HCPCS: 36415; 70450; 72110; 80048; 80076; 80143; 80307; 80320; 81003; 85025; 87426; 99285; C9803; G0480

== ENCOUNTER 2021-01-25 04:24 | Emergency (ER) | payer OTHER ==
[~2021-01-25] VITALS: Ht 175.3 cm; Wt 81.6 kg
--- NOTE | 2021-01-25 04:32 | NUR ---
CARLOS C/O SI WITH PLAN TO OD ON MEDICATIONS. ALSO, REQUESTING STD CHECK. PT A/OX4.
--- NOTE | 2021-01-25 04:35 | NUR ---
SITTER AT BEDSIDE. SAFETY MEASURES IN PLACE. BELONGINGS COLLECTED. PT CONNTECTED TO POX AND TELE MONITOR
--- NOTE | 2021-01-25 04:42 | NUR ---
COLLECTED URINE SAMPLE AND COVID SWAB VIA HOSE MAKER; SENT TO LAB
[2021-01-25 04:49] LABS: BILIRUBIN,URINE Negative (NEGATIVE); LEUKOCYTE ESTERASE ,URINE Negative (NEGATIVE); NITRITE, URINE Negative (NEGATIVE); PH,URINE 6.5 (5.0-8.0); PROTEIN,URINE Negative (NEGATIVE); UGLUCOSE Negative (NEGATIVE); UROBILINOGEN,URINE 0.2 EU/dL (0.2)
[2021-01-25 04:50] LABS: COLOR,URINE LIGHT YELLOW (YELLOW)
[2021-01-25] MEDS ORDERED: CEFTRIAXONE 500 MG VIAL ONE (04:54)
[2021-01-25] MEDS ORDERED: AZITHROMYCIN 250 MG TABLET ONE (04:54)
[2021-01-25] MEDS ORDERED: METRONIDAZOLE 500 MG TABLET ONE (04:54)
[2021-01-25 04:55] LABS: BASOPHILS % (AUTO) 0.5 % (0.0-2.0); EOSINOPHILS % (AUTO) 3.3 % (0.0-6.0); HEMATOCRIT 45 % (39-51); LYMPHOCYTES # (AUTO) 1.6 K/uL (0.8-4.8); LYMPHOCYTES % (AUTO) 50.1 % (20.0-44.0); MEAN CORPUSCULAR HGB CONC 34 g/dl (31.0-36.0); MEAN CORPUSCULAR VOLUME 95 fL (80-96); MONOCYTES # (AUTO) 0.3 K/uL (0.1-1.30); MONOCYTES % (AUTO) 8.4 % (2.0-12.0); NEUTROPHILS # (AUTO) 1.2 K/uL (1.8-8.9); NEUTROPHILS % (AUTO) 37.7 % (43.0-81.0); PLATELET COUNT (AUTO) 170 K/uL (150-450); RED BLOOD CELL COUNT(AUTO) 4.71 MIL/uL (4.5-6.0); WHITE BLOOD COUNT (AUTO) 3.1 K/uL (4.3-11.0)
[2021-01-25] MEDS ORDERED: METRONIDAZOLE 500 MG TABLET PO ONE (05:00)
[2021-01-25] MEDS ORDERED: AZITHROMYCIN 250 MG TABLET PO ONE (05:00)
[2021-01-25] MEDS ORDERED: CEFTRIAXONE 500 MG VIAL IM ONE (05:00)
[2021-01-25 05:03] LABS: CARBON DIOXIDE 28 mmol/L (21-32); CHLORIDE 103 mmol/L (98-107); GLUCOSE 89 mg/dL (74-106); POTASSIUM 3.4 mmol/L (3.5-5.1); SODIUM SERUM 140 mmol/L (136-145); UREA NITROGEN, BLOOD 11 mg/dL (7-18)
[2021-01-25 05:15] LABS: ALANINE AMINOTRANSFERASE 29 U/L (12-78); ALBUMIN 3.9 g/dL (3.4-5.0); ALCOHOL, BLOOD < 3 mg/dL (0-0); ALKALINE PHOSPHATASE 69 U/L (46-116); ASPARTATE AMINOTRANSFERASE 33 U/L (15-37); BILIRUBIN,DIRECT 0.2 mg/dL (0.0-0.2); BILIRUBIN,TOTAL 0.6 mg/dL (0.2-1.0); TOTAL PROTEIN, SERUM 8.5 g/dL (6.4-8.2)
[2021-01-25 05:16] LABS: ACETAMINOPHEN 0 ug/ml (10-30)
[2021-01-25 06:40] LABS: BASOPHILS % (MANUAL) 1 % (0.0-2.0); EOSINOPHILS % (MANUAL) 1 % (0-4); LYMPHOCYTES % (MANUAL) 46 % (16-48); MONOCYTES % (MANUAL) 10 % (0-11.0); NEUTROPHILS % (MANUAL) 36 (42-76); REACTIVE LYMPHOCYTES 6 % (0-0)
--- NOTE | 2021-01-25 10:11 | NUR ---
SS note SS faxed clinicals to [facility], , for review.
--- NOTE | 2021-01-25 11:05 | NUR ---
SS consult manager managed backup services consult requested for suicidal ideation and homelessness. Patient is a 35-year-old, male. SW met with patient at his bedside in the emergency department. Patient was alert and oriented x3. Patient presented with a depressed mood and affect. Patient was resting. Patient appeared disheveled and malodorous. Patient was appropriately dressed. Per chart, patient presented to the hospital on 01/25/21 with complaints of suicidal ideation and requesting medical clearance for voluntary psychiatric admission. Patient stated that he is currently homeless and has been living on the street. Patient stated that he currently has no source of income and has no access to social support at this time. Patient denied hx of substance use. Per toxicology report, patient is positive for amphetamine use. SW assessed patient's history of mental illness and patient denied history. Patient denied current auditory or visual hallucinations. Patient reported current suicidal ideation, with a plan to overdose on pills. Patient denied current homicidal ideation. SW offered the patient homeless, substance use, and outpatient mental health resources. Patient accepted the resources and thanked SW. Patient signed the homeless waiver and SW filed waiver in the patient's chart. Patient requested voluntary psychiatric admission. APARNA faxed clinicals to [facility], , for review. PLAN: Pt plans to be D/C to [facility] for voluntary psychiatric admission. Clinicals faxed, for review. No further SS intervention at this time, however, [place] [address]; [facility] [address] [facility] [place] [address] [phone] Counseling--Outpatient [place] [address] [facility] [place] [address] (Specializes in in-depth psychotherapy for emotional distress: anxiety, depression, interpersonal conflicts, life transitions, childhood abuse) PSYCHIATRIC OUTPATIENT SERVICES [facility] Partial Hospitalization and Intensive Outpatient Program ([facility] Care and [place] Only) [address] [address] [facility] [id number] [facility] Partial Hospitalization and Outpatient Program [address] [facility]. [address] [place] [address] [facility] Partial Hospitalization and Outpatient Program [address] [facility] [place] [address] [facility] [address] [address] [facility]. [address] [place] [address] [facility] Partial Hospitalization and Outpatient Program [address] [address] [facility] [place] [phone] Substance use resources provided included: [facility] Substance Abuse Self-Helpline (SAS) ; [facility] [address] [place] [address] ; [facility] [address] [facility] [address] ; [facility] [address] [facility] [id number] ; [facility] [address] [facility] [id number] ; [facility] [address] [facility] [id number] ; [facility] [place]; [facility] [place]; Luckey Hamlin Roxanna; Alcoholics Anonymous -SFV
--- NOTE | 2021-01-25 16:42 | NUR ---
[facility]
[2021-01-25 17:00] VITALS: BP 118/77
--- NOTE | 2021-01-25 17:07 | NUR ---
CALLED [facility]. PT WILL BE PICKED UP BY BLS TRANSPORT IN 120 MIN OF 1706 TO [facility]
--- NOTE | 2021-01-25 19:17 | NUR ---
patient picked up by private ambulance in no distress going to [facility], report given to Mika ANDERSON for emery.
== END 2021-01-25 19:17 ==
LOC: ER 04:25
DX: R45.851 Suicidal ideations (principal); J45.909 Unspecified asthma, uncomplicated; Z59.0 Homelessness; Z91.410 Personal history of adult physical and sexual abuse; F15.10 Other stimulant abuse, uncomplicated; Z77.21 Contact with and (suspected) exposure to potentially hazardous body fluids; Z20.822 Contact with and (suspected) exposure to COVID-19
CPT/HCPCS: 36415; 80048; 80076; 80143; 80307; 80320; 81003; 85007; 85025; 87426; 87491; 87591; 96372; 99285; C9803; J0696; G0480

== ENCOUNTER 2021-02-07 23:23 | Emergency (ER) | payer OTHER ==
[~2021-02-07] VITALS: Ht 175.3 cm; Wt 86.2 kg
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
[2021-02-08 03:50] LABS: BASOPHILS % (AUTO) 0.7 % (0.0-2.0); EOSINOPHILS % (AUTO) 3.4 % (0.0-6.0); HEMATOCRIT 46 % (39-51); HEMOGLOBIN 15.6 g/dL (13.5-17.5); LYMPHOCYTES # (AUTO) 1.4 K/uL (0.8-4.8); LYMPHOCYTES % (AUTO) 41.9 % (20.0-44.0); MEAN CORPUSCULAR HGB CONC 34 g/dl (31.0-36.0); MEAN CORPUSCULAR VOLUME 95 fL (80-96); MONOCYTES # (AUTO) 0.3 K/uL (0.1-1.30); MONOCYTES % (AUTO) 7.6 % (2.0-12.0); NEUTROPHILS # (AUTO) 1.6 K/uL (1.8-8.9); NEUTROPHILS % (AUTO) 46.4 % (43.0-81.0); PLATELET COUNT (AUTO) 183 K/uL (150-450); RED BLOOD CELL COUNT(AUTO) 4.89 MIL/uL (4.5-6.0); WHITE BLOOD COUNT (AUTO) 3.4 K/uL (4.3-11.0)
[2021-02-08 03:59] LABS: CALCIUM, SERUM 9.2 mg/dL (8.5-10.1); CARBON DIOXIDE 29 mmol/L (21-32); CHLORIDE 103 mmol/L (98-107); CREATININE 0.9 mg/dL (0.6-1.3); GLUCOSE 71 mg/dL (74-106); SODIUM SERUM 139 mmol/L (136-145); UREA NITROGEN, BLOOD 11 mg/dL (7-18)
[2021-02-08 04:00] LABS: BILIRUBIN,URINE Negative (NEGATIVE); COLOR,URINE LIGHT YELLOW (YELLOW); LEUKOCYTE ESTERASE ,URINE Negative (NEGATIVE); NITRITE, URINE Negative (NEGATIVE); PROTEIN,URINE Negative (NEGATIVE); UGLUCOSE Negative (NEGATIVE); UROBILINOGEN,URINE 0.2 EU/dL (0.2)
[2021-02-08 04:04] LABS: ALANINE AMINOTRANSFERASE 33 U/L (12-78); ALBUMIN 3.9 g/dL (3.4-5.0); ALCOHOL, BLOOD < 3 mg/dL (0-0); ALKALINE PHOSPHATASE 61 U/L (46-116); ASPARTATE AMINOTRANSFERASE 33 U/L (15-37); BILIRUBIN,DIRECT 0.1 mg/dL (0.0-0.2); BILIRUBIN,TOTAL 0.6 mg/dL (0.2-1.0); TOTAL PROTEIN, SERUM 8.2 g/dL (6.4-8.2)
[2021-02-08 04:05] LABS: ACETAMINOPHEN 0 ug/ml (10-30)
--- NOTE | 2021-02-08 05:07 | NUR ---
faxed face sheet and clinicals to [facility]
--- NOTE | 2021-02-08 05:48 | NUR ---
PT RESTING COMFORTABLY, WITH NO COMPLAINTS AT THIS TIME.
--- NOTE | 2021-02-08 09:51 | NUR ---
ACCEPTED AT [facility] UNDER DR. ZIEGLER. CALL FOR REPORT [phone]
--- NOTE | 2021-02-08 09:55 | NUR ---
CALLED [facility] ETA 60 MINS PER ADONAY.
[2021-02-08 10:05] VITALS: BP 115/81
--- NOTE | 2021-02-08 10:39 | NUR ---
REPORT GIVEN TO DULCE AT [facility].
== END 2021-02-08 11:35 ==
LOC: ER 23:30
DX: R45.851 Suicidal ideations (principal); S09.90XA Unspecified injury of head, initial encounter; Y09 Assault by unspecified means; Y92.89 Other specified places as the place of occurrence of the external cause; Z59.0 Homelessness; Z91.410 Personal history of adult physical and sexual abuse; Z20.822 Contact with and (suspected) exposure to COVID-19; Z91.040 Latex allergy status; J45.909 Unspecified asthma, uncomplicated; F17.200 Nicotine dependence, unspecified, uncomplicated
CPT/HCPCS: 36415; 70450; 80048; 80076; 80143; 80307; 80320; 81003; 84484; 85025; 87426; 99285; C9803; G0480

== ENCOUNTER 2021-03-04 22:23 | Emergency (ER) | payer OTHER ==
[~2021-03-04] VITALS: Ht 175.3 cm; Wt 81.6 kg
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
--- NOTE | 2021-03-05 03:21 | NUR ---
AT BED SIDE
--- NOTE | 2021-03-05 03:24 | NUR ---
URINE SAMPLE COLLECTED AND SENT TO LAB
[2021-03-05] MEDS ORDERED: ACETAMINOPHEN 325 MG TABLET ONE (03:28)
[2021-03-05] MEDS ORDERED: ACETAMINOPHEN 325 MG TABLET PO ONE (03:30)
[2021-03-05 03:33] LABS: BILIRUBIN,URINE Negative (NEGATIVE); COLOR,URINE YELLOW (YELLOW); LEUKOCYTE ESTERASE ,URINE Negative (NEGATIVE); NITRITE, URINE Negative (NEGATIVE); PH,URINE 6.5 (5.0-8.0); PROTEIN,URINE Negative (NEGATIVE); UGLUCOSE Negative (NEGATIVE); UROBILINOGEN,URINE 0.2 EU/dL (0.2)
[2021-03-05 03:42] LABS: BASOPHILS % (AUTO) 0.8 % (0.0-2.0); EOSINOPHILS % (AUTO) 2.8 % (0.0-6.0); HEMATOCRIT 43 % (39-51); HEMOGLOBIN 14.4 g/dL (13.5-17.5); LYMPHOCYTES # (AUTO) 1.6 K/uL (0.8-4.8); LYMPHOCYTES % (AUTO) 51.1 % (20.0-44.0); MEAN CORPUSCULAR HGB CONC 33 g/dl (31.0-36.0); MEAN CORPUSCULAR VOLUME 95 fL (80-96); MONOCYTES # (AUTO) 0.3 K/uL (0.1-1.30); NEUTROPHILS # (AUTO) 1.2 K/uL (1.8-8.9); NEUTROPHILS % (AUTO) 37.3 % (43.0-81.0); PLATELET COUNT (AUTO) 192 K/uL (150-450); RED BLOOD CELL COUNT(AUTO) 4.57 MIL/uL (4.5-6.0); WHITE BLOOD COUNT (AUTO) 3.1 K/uL (4.3-11.0)
[2021-03-05 03:49] LABS: CALCIUM, SERUM 8.4 mg/dL (8.5-10.1); CARBON DIOXIDE 28 mmol/L (21-32); CHLORIDE 105 mmol/L (98-107); GLUCOSE 107 mg/dL (74-106); POTASSIUM 3.4 mmol/L (3.5-5.1); SODIUM SERUM 143 mmol/L (136-145); UREA NITROGEN, BLOOD 16 mg/dL (7-18)
[2021-03-05 03:54] LABS: ACETAMINOPHEN 0 ug/ml (10-30); ALANINE AMINOTRANSFERASE 62 U/L (12-78); ALBUMIN 3.6 g/dL (3.4-5.0); ALCOHOL, BLOOD < 3 mg/dL (0-0); ALKALINE PHOSPHATASE 65 U/L (46-116); ASPARTATE AMINOTRANSFERASE 40 U/L (15-37); BILIRUBIN,DIRECT 0.1 mg/dL (0.0-0.2); BILIRUBIN,TOTAL 0.5 mg/dL (0.2-1.0)
--- NOTE | 2021-03-05 06:16 | NUR ---
FACE SHEET AND CLINNICALS WERE FAXED TO [facility]
[2021-03-05 06:21] LABS: BASOPHILS % (MANUAL) 1 % (0.0-2.0); EOSINOPHILS % (MANUAL) 2 % (0-4); LYMPHOCYTES % (MANUAL) 52 % (16-48); MONOCYTES % (MANUAL) 1 % (0-11.0); NEUTROPHILS % (MANUAL) 37 (42-76); REACTIVE LYMPHOCYTES 7 % (0-0)
--- NOTE | 2021-03-05 07:45 | NUR ---
THE PATIENT IS RECEIVED IN ER #19. THE PATIENT IS ALERT AND ORIENTED X4. DENIES PAIN. IN ROOM AIR AND DENIES SOB. RESPIRATION REGULAR AND UNLABORED. WILL CONTINUE TO MONITOR THE PATIENT.
--- NOTE | 2021-03-05 08:23 | NUR ---
THE PATIENT IS HAVING BREAKFAST
[2021-03-05 08:32] VITALS: BP 120/83
--- NOTE | 2021-03-05 12:30 | NUR ---
THE PATIENT IS HAVING LUNCH
--- NOTE | 2021-03-05 14:44 | NUR ---
THE PATIENT IS ALERT AND ORIENTED X4. DENIES PAIN. IN ROOM AIR AND DENIES SOB. RESPIRATION REGULAR AND UNLABORED.
--- NOTE | 2021-03-05 16:18 | NUR ---
REFAXED CLINICALS TO [facility].
--- NOTE | 2021-03-05 16:22 | NUR ---
PT ACCEPTED TO [facility] UNDER DR. ZIEGLER & DR. TRAN [phone] FOR REPORT
--- NOTE | 2021-03-05 16:24 | NUR ---
[facility] CALLED ETA 45 MINS PER JESSIE.
[2021-03-05] MEDS ORDERED: LORAZEPAM 0.5 MG TABLET ONE (16:49)
[2021-03-05] MEDS ORDERED: LORAZEPAM 1 MG TABLET PO ONE (17:00)
== END 2021-03-05 17:54 ==
LOC: ER 22:25
DX: R45.851 Suicidal ideations (principal); S09.90XA Unspecified injury of head, initial encounter; X58.XXXA Exposure to other specified factors, initial encounter; Y92.89 Other specified places as the place of occurrence of the external cause; Z88.8 Allergy status to other drugs, medicaments and biological substances; Z91.040 Latex allergy status; J45.909 Unspecified asthma, uncomplicated; D72.819 Decreased white blood cell count, unspecified; F19.10 Other psychoactive substance abuse, uncomplicated; Z59.00 Homelessness unspecified; F17.200 Nicotine dependence, unspecified, uncomplicated
CPT/HCPCS: 36415; 80048; 80076; 80143; 80307; 80320; 81003; 84132; 85007; 85025; 87426; 99285; C9803; G0480

== ENCOUNTER 2021-03-17 22:09 | Emergency (ER) | payer OTHER ==
[~2021-03-17] VITALS: Ht 175.3 cm; Wt 86.2 kg
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
--- NOTE | 2021-03-18 01:11 | NUR ---
COVID SWAB DONE
[2021-03-18 01:16] LABS: BILIRUBIN,URINE Negative (NEGATIVE); COLOR,URINE YELLOW (YELLOW); LEUKOCYTE ESTERASE ,URINE Negative (NEGATIVE); NITRITE, URINE Negative (NEGATIVE); PH,URINE 6.5 (5.0-8.0); PROTEIN,URINE Negative (NEGATIVE); UGLUCOSE Negative (NEGATIVE); UROBILINOGEN,URINE 0.2 EU/dL (0.2)
--- NOTE | 2021-03-18 01:16 | NUR ---
TAKEN TO RADIOLOGY
[2021-03-18 01:18] LABS: BASOPHILS % (AUTO) 0.9 % (0.0-2.0); EOSINOPHILS % (AUTO) 3.2 % (0.0-6.0); HEMATOCRIT 43 % (39-51); HEMOGLOBIN 14.4 g/dL (13.5-17.5); LYMPHOCYTES # (AUTO) 1.9 K/uL (0.8-4.8); LYMPHOCYTES % (AUTO) 45.3 % (20.0-44.0); MEAN CORPUSCULAR HGB CONC 34 g/dl (31.0-36.0); MEAN CORPUSCULAR VOLUME 96 fL (80-96); MONOCYTES # (AUTO) 0.5 K/uL (0.1-1.30); NEUTROPHILS # (AUTO) 1.7 K/uL (1.8-8.9); NEUTROPHILS % (AUTO) 39.6 % (43.0-81.0); PLATELET COUNT (AUTO) 193 K/uL (150-450); RED BLOOD CELL COUNT(AUTO) 4.48 MIL/uL (4.5-6.0); WHITE BLOOD COUNT (AUTO) 4.2 K/uL (4.3-11.0)
--- NOTE | 2021-03-18 01:24 | NUR ---
RETURNED FROM RAD
[2021-03-18 01:32] LABS: CALCIUM, SERUM 8.6 mg/dL (8.5-10.1); CARBON DIOXIDE 31 mmol/L (21-32); CHLORIDE 104 mmol/L (98-107); CREATININE 0.9 mg/dL (0.6-1.3); GLUCOSE 83 mg/dL (74-106); POTASSIUM 3.4 mmol/L (3.5-5.1); SODIUM SERUM 139 mmol/L (136-145); UREA NITROGEN, BLOOD 13 mg/dL (7-18)
[2021-03-18 01:38] LABS: ACETAMINOPHEN 0 ug/ml (10-30); ALANINE AMINOTRANSFERASE 38 U/L (12-78); ALBUMIN 3.9 g/dL (3.4-5.0); ALCOHOL, BLOOD < 3 mg/dL (0-0); ALKALINE PHOSPHATASE 79 U/L (46-116); ASPARTATE AMINOTRANSFERASE 38 U/L (15-37); BILIRUBIN,DIRECT 0.1 mg/dL (0.0-0.2); BILIRUBIN,TOTAL 0.3 mg/dL (0.2-1.0); TOTAL PROTEIN, SERUM 8.5 g/dL (6.4-8.2)
--- NOTE | 2021-03-18 02:15 | NUR ---
PT SITTING QUIETLY, WATCHING TV, ATTACHED TO MONITOR AND POX. VSS
[2021-03-18] MEDS ORDERED: POTASSIUM CHLORIDE 20 MEQ TAB.PRT.SR PO ONE ×2 (03:27→03:30)
--- NOTE | 2021-03-18 03:28 | NUR ---
CLINICALS AND FACE SHEET FAXED TO [facility]
--- NOTE | 2021-03-18 04:17 | NUR ---
[employer] AT BED SIDE
--- NOTE | 2021-03-18 04:18 | NUR ---
PT GOT ACCEPTED AT [facility] BY DR TORRES AND MELINA . PLEASE ARRANGE TRANSPORTATION AFTER SHIFT CHANGE.
--- NOTE | 2021-03-18 04:20 | NUR ---
[employer] at bedside
--- NOTE | 2021-03-18 04:23 | NUR ---
PER JARRED, CHARGE NURSE AT [facility] TO ARRANGE TRANSPORTATION @ 1100 [facility] TRANSPORTATION ARRANGED FOR 1100
--- NOTE | 2021-03-18 05:05 | NUR ---
[facility] ORDER 600MG MOTRIN PO. NOTED AND CARRIED OUT
[2021-03-18] MEDS ORDERED: IBUPROFEN 600 MG TABLET ONE (05:07)
[2021-03-18] MEDS ORDERED: IBUPROFEN 600 MG TABLET PO ONE (05:30)
[2021-03-18 10:00] VITALS: BP 119/65
--- NOTE | 2021-03-18 11:00 | NUR ---
APARNA met with pt. regarding SI. Pt. reported that he wants a referral to [facility]. APARNA faxed over clinical reports to [facility] [[phone]]. APARNA will notify ED nurse once [facility] has a bed open.
--- NOTE | 2021-03-18 11:37 | NUR ---
patient picked up by private ambulance in no distress going to [facility].
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
== END 2021-03-18 11:37 ==
LOC: ER 22:11
DX: R45.851 Suicidal ideations (principal); T76.21XA Adult sexual abuse, suspected, initial encounter; S09.90XA Unspecified injury of head, initial encounter; Y09 Assault by unspecified means; Y92.89 Other specified places as the place of occurrence of the external cause; Z59.02 Unsheltered homelessness; Z88.8 Allergy status to other drugs, medicaments and biological substances; Z91.040 Latex allergy status; J45.909 Unspecified asthma, uncomplicated; F41.9 Anxiety disorder, unspecified; F17.200 Nicotine dependence, unspecified, uncomplicated; Z20.822 Contact with and (suspected) exposure to COVID-19
CPT/HCPCS: 36415; 70450; 80048; 80076; 80143; 80307; 80320; 81003; 85025; 87426; 99285; C9803; G0480

== ENCOUNTER 2021-04-01 08:04 | Emergency (ER) | payer OTHER ==
[~2021-04-01] VITALS: Ht 175.3 cm; Wt 81.6 kg
--- NOTE | 2021-04-01 08:14 | NUR ---
URINE SAMPLE OBTAINED AND SENT TO LAB
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
--- NOTE | 2021-04-01 08:37 | NUR ---
THE PATIENT IS ALERT AND ORIENTED X4. DENIES PAIN. IN ROOM AIR AND DENIES SOB. RESPIRATION REGULAR AND UNLABORED. WILL CONTINUE TO MONITOR THE PATIENT.
[2021-04-01 08:47] LABS: BILIRUBIN,URINE SMALL (NEGATIVE); COLOR,URINE YELLOW (YELLOW); LEUKOCYTE ESTERASE ,URINE Negative (NEGATIVE); NITRITE, URINE Negative (NEGATIVE); PROTEIN,URINE Trace mg/dl (NEGATIVE); UGLUCOSE Negative (NEGATIVE)
--- NOTE | 2021-04-01 08:48 | NUR ---
THE PATIENT IS HAVING BREAKFAST. TOLERATES PROVIDED MEAL WELL.
[2021-04-01 08:55] LABS: BASOPHILS % (AUTO) 0.5 % (0.0-2.0); HEMATOCRIT 42 % (39-51); HEMOGLOBIN 14.2 g/dL (13.5-17.5); LYMPHOCYTES # (AUTO) 1.1 K/uL (0.8-4.8); LYMPHOCYTES % (AUTO) 39.5 % (20.0-44.0); MEAN CORPUSCULAR HGB CONC 34 g/dl (31.0-36.0); MEAN CORPUSCULAR VOLUME 95 fL (80-96); MONOCYTES # (AUTO) 0.4 K/uL (0.1-1.30); MONOCYTES % (AUTO) 13.2 % (2.0-12.0); NEUTROPHILS # (AUTO) 1.2 K/uL (1.8-8.9); NEUTROPHILS % (AUTO) 43.8 % (43.0-81.0); PLATELET COUNT (AUTO) 136 K/uL (150-450); RED BLOOD CELL COUNT(AUTO) 4.36 MIL/uL (4.5-6.0); WHITE BLOOD COUNT (AUTO) 2.8 K/uL (4.3-11.0)
[2021-04-01 09:00] LABS: CALCIUM, SERUM 8.5 mg/dL (8.5-10.1); CARBON DIOXIDE 28 mmol/L (21-32); CHLORIDE 100 mmol/L (98-107); CREATININE 0.8 mg/dL (0.6-1.3); GLUCOSE 90 mg/dL (74-106); POTASSIUM 3.3 mmol/L (3.5-5.1); SODIUM SERUM 136 mmol/L (136-145); UREA NITROGEN, BLOOD 10 mg/dL (7-18)
[2021-04-01 09:07] LABS: ALANINE AMINOTRANSFERASE 79 U/L (12-78); ALBUMIN 3.9 g/dL (3.4-5.0); ALKALINE PHOSPHATASE 70 U/L (46-116); ASPARTATE AMINOTRANSFERASE 67 U/L (15-37); BILIRUBIN,DIRECT 0.2 mg/dL (0.0-0.2); BILIRUBIN,TOTAL 0.8 mg/dL (0.2-1.0); TOTAL PROTEIN, SERUM 8.3 g/dL (6.4-8.2)
[2021-04-01 09:09] LABS: ACETAMINOPHEN < 10 ug/ml (10-30); ALCOHOL, BLOOD < 3 mg/dL (0-0)
[2021-04-01 09:13] LABS: BACTERIA,URINE None seen /HPF (None Seen); RBC,URINE 0-2 /HPF (0-2); WBC,URINE 0-2 /HPF (0-3)
[2021-04-01 09:14] LABS: MUCUS,URINE Few /LPF (None Seen)
--- NOTE | 2021-04-01 09:49 | NUR ---
COVID SWAB DONE AND SENT TO THE LAB
--- NOTE | 2021-04-01 11:47 | NUR ---
SS Consult: SS consult requested for suicidal ideation. Pt. is a 35-year-old white male who presents to the ED with suicidal ideation. Upon SS consult, pt. was alert and oriented x4. Pt. provided appropriate eye contact and was cooperative throughout the assessment. Pt. presented with a dysphoric mood and appeared unkempt. Pt. presented with a normal thought process. SW explored pt.s social support. Pt. stated he had no family or friends. SW explored pt.s living situation. Pt. stated he is homeless. SW provided homeless resources and pt. accepted them. SW explored pt.s financial situation. Pt. stated he does not receive food stamps, SSI or general relief. SW explored pt.s substance abuse hx. Pt. denied alcohol/drug abuse. SW explored pt.s psychiatric diagnosis. Pt. denied psychiatric diagnosis. Pt. denied visual/auditory hallucinations. Pt. stated he was suicidal. Pt denied homicidal ideation. Pt. was referred to [facility] [[address] [place] [address] FAX:[phone]] for inpatient psychiatric treatment. SW will remain available as needed.
--- NOTE | 2021-04-01 13:01 | NUR ---
FAXED CLINICALS TO [facility]
--- NOTE | 2021-04-01 18:32 | NUR ---
CALLED [facility] CASE STILL UNDER REVIEW PER ART
--- NOTE | 2021-04-02 06:16 | NUR ---
CALLED [facility] AND SPOKE TO JUSTINE. SHE WILL CALL THE GENERAL SERVICE TECHNICIAN FOR F/U AND WILL GIVE US A CALL BACK
[2021-04-02] MEDS ORDERED: POTASSIUM CHLORIDE 20 MEQ TAB.PRT.SR PO ONE ×2 (06:33→07:00)
--- NOTE | 2021-04-02 06:33 | NUR ---
ACCEPTED AT [facility]. SEND PATIENT AFTER 0900.
--- NOTE | 2021-04-02 07:10 | NUR ---
ACCEPTED AT [facility] BY DR TORRES
--- NOTE | 2021-04-02 07:14 | NUR ---
[facility] TRANSPORTATION ARRANGED FOR 1000
--- NOTE | 2021-04-02 07:45 | NUR ---
THE PATIENT IS RECEIVED IN ER BED #14. DENIES PAIN. IN ROOM AIR AND DENIES SOB. RESPIRATION REGULAR AND UNLABORED. WILL CONTINUE TO MONITOR THE PATIENT.
--- NOTE | 2021-04-02 07:50 | NUR ---
REPORT GIVEN TO NURSE SHELLEY FROM MAMADOU HAUSER
[2021-04-02 10:01] VITALS: BP 116/60
--- NOTE | 2021-04-02 11:00 | NUR ---
THE PATIENT IS DISCHARGED TO [facility] IN STABLE CONDITION VIA ARRANGED TRANSPO.
== END 2021-04-02 07:50 ==
LOC: ER 08:08
DX: R45.851 Suicidal ideations (principal); F15.10 Other stimulant abuse, uncomplicated; S09.90XA Unspecified injury of head, initial encounter; Y09 Assault by unspecified means; Y92.89 Other specified places as the place of occurrence of the external cause; Z20.822 Contact with and (suspected) exposure to COVID-19; Z59.00 Homelessness unspecified; R74.01 Elevation of levels of liver transaminase levels; E87.6 Hypokalemia; F17.200 Nicotine dependence, unspecified, uncomplicated; Z88.8 Allergy status to other drugs, medicaments and biological substances; Z91.040 Latex allergy status; F41.9 Anxiety disorder, unspecified; J45.909 Unspecified asthma, uncomplicated; Z91.410 Personal history of adult physical and sexual abuse
CPT/HCPCS: 36415; 70450; 80048; 80076; 80143; 80307; 80320; 81001; 85025; 87426; 99285; C9803; L0172; G0480

== ENCOUNTER 2021-04-15 19:19 | Emergency (ER) | payer OTHER ==
--- NOTE | 2021-04-16 01:30 | NUR ---
CALLED TO TRIAGE NOT IN WAITING ROOM
--- NOTE | 2021-04-16 02:30 | NUR ---
CALLED TO TRIAGE NOT IN WAITING ROOM
--- NOTE | 2021-04-16 03:00 | NUR ---
PT BACK IN WAITING ROOM
== END 2021-04-16 03:00 | disposition left against medical advice (07) ==
LOC: ER 19:38
DX: Z53.21 Procedure and treatment not carried out due to patient leaving prior to being seen by health care provider (principal)

== ENCOUNTER 2021-04-16 03:36 | Emergency (ER) | payer OTHER ==
[~2021-04-16] VITALS: Ht 175.3 cm; Wt 86.2 kg
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
[2021-04-16 04:59] LABS: EOSINOPHILS % (AUTO) 4.3 % (0.0-6.0); HEMATOCRIT 41 % (39-51); HEMOGLOBIN 13.9 g/dL (13.5-17.5); LYMPHOCYTES # (AUTO) 1.1 K/uL (0.8-4.8); MEAN CORPUSCULAR HGB CONC 34 g/dl (31.0-36.0); MEAN CORPUSCULAR VOLUME 95 fL (80-96); MONOCYTES # (AUTO) 0.4 K/uL (0.1-1.30); MONOCYTES % (AUTO) 10.7 % (2.0-12.0); NEUTROPHILS # (AUTO) 1.9 K/uL (1.8-8.9); PLATELET COUNT (AUTO) 183 K/uL (150-450); RED BLOOD CELL COUNT(AUTO) 4.28 MIL/uL (4.5-6.0); WHITE BLOOD COUNT (AUTO) 3.5 K/uL (4.3-11.0)
--- NOTE | 2021-04-16 05:02 | NUR ---
PT SLEEPING. PER DR. DILL, AWAITING LABS FOR MED CLEARANCE NOTE.
[2021-04-16 05:13] LABS: CALCIUM, SERUM 8.4 mg/dL (8.5-10.1); CARBON DIOXIDE 26 mmol/L (21-32); CHLORIDE 104 mmol/L (98-107); CREATININE 0.8 mg/dL (0.6-1.3); GLUCOSE 82 mg/dL (74-106); POTASSIUM 3.7 mmol/L (3.5-5.1); SODIUM SERUM 138 mmol/L (136-145); UREA NITROGEN, BLOOD 13 mg/dL (7-18)
[2021-04-16 05:18] LABS: ACETAMINOPHEN 0 ug/ml (10-30); ALANINE AMINOTRANSFERASE 57 U/L (12-78); ALBUMIN 3.6 g/dL (3.4-5.0); ALCOHOL, BLOOD < 3 mg/dL (0-0); ALKALINE PHOSPHATASE 67 U/L (46-116); ASPARTATE AMINOTRANSFERASE 47 U/L (15-37); BILIRUBIN,DIRECT 0.2 mg/dL (0.0-0.2); BILIRUBIN,TOTAL 0.9 mg/dL (0.2-1.0); TOTAL PROTEIN, SERUM 7.9 g/dL (6.4-8.2)
[2021-04-16 06:16] LABS: BILIRUBIN,URINE NEGATIVE (NEGATIVE); COLOR,URINE YELLOW (YELLOW); LEUKOCYTE ESTERASE ,URINE NEGATIVE (NEGATIVE); NITRITE, URINE NEGATIVE (NEGATIVE); PROTEIN,URINE NEGATIVE (NEGATIVE); UGLUCOSE NEGATIVE (NEGATIVE); UROBILINOGEN,URINE 0.2 EU/dL (0.2)
--- NOTE | 2021-04-16 06:30 | NUR ---
F/U WITH LAB, UA TOX SCREEN WILL BE RESULTED SOON
[2021-04-16 08:44] LABS: RBC,URINE NONE SEEN /HPF (0-2); WBC,URINE 0-2 /HPF (0-3)
[2021-04-16 08:45] LABS: BACTERIA,URINE None seen /HPF (None Seen); SQUAMOUS EPITHELIAL CELL,UR None Seen /HPF (None Seen)
--- NOTE | 2021-04-16 10:24 | NUR ---
REFAXED CLINICALS TO [facility]
--- NOTE | 2021-04-16 10:35 | NUR ---
KATYA CALLED PT ACCEPTED TO [facility] UNDER DR. ORTIZ PLEASE CALL [phone] FOR REPORT.
--- NOTE | 2021-04-16 10:41 | NUR ---
CALLED [facility] 45 MINS.
[2021-04-16 10:48] VITALS: BP 114/58
--- NOTE | 2021-04-16 11:01 | NUR ---
report given to Riki ANDERSON at [facility] cc. awaiting transport ambulance.
--- NOTE | 2021-04-16 11:39 | NUR ---
transported to [facility] in stable condition.
== END 2021-04-16 11:40 ==
LOC: ER 03:40
DX: R45.851 Suicidal ideations (principal); Z59.01 Sheltered homelessness; F19.10 Other psychoactive substance abuse, uncomplicated; Z20.822 Contact with and (suspected) exposure to COVID-19; F17.200 Nicotine dependence, unspecified, uncomplicated; J45.909 Unspecified asthma, uncomplicated; Z88.8 Allergy status to other drugs, medicaments and biological substances; Z91.040 Latex allergy status; S09.90XA Unspecified injury of head, initial encounter; Y09 Assault by unspecified means; Y92.89 Other specified places as the place of occurrence of the external cause
CPT/HCPCS: 36415; 70450; 72125; 80048; 80076; 80143; 80307; 80320; 81001; 85025; 87426; 99285; C9803; G0480

== ENCOUNTER 2021-07-24 20:29 | Emergency (ER) | payer OTHER ==
--- NOTE | 2021-07-24 23:00 | NUR ---
NOT IN WAITING ROOM WHEN CALLED FOR TRIAGE
--- NOTE | 2021-07-24 23:27 | NUR ---
CALLED TO TRIAGE NOT IN WAITING ROOM
== END 2021-07-24 23:28 | disposition left against medical advice (07) ==
LOC: ER 20:44
DX: Z53.21 Procedure and treatment not carried out due to patient leaving prior to being seen by health care provider (principal)

== ENCOUNTER 2021-07-25 08:57 | Emergency (ER) | payer OTHER ==
[~2021-07-25] VITALS: Ht 175.3 cm; Wt 83.9 kg
--- NOTE | 2021-07-25 09:00 | NUR ---
PT SELF PRESENTS TO ED. C/O SUICIDAL IDEATION W/ PLAN TO OVERDOSE ON PAIN PILLS. DENIES HI. PT SEEN IN ED MULTIPLE TIME FOR SAME COMPLAINT. PT IS REQUESTING VOLUNTARY PSYCH ADMIT TO [facility]. AWAITING MD MTZ.
--- NOTE | 2021-07-25 09:04 | NUR ---
DR AVALOS AT BEDSIDE FOR EVAL.
--- NOTE | 2021-07-25 09:35 | NUR ---
COVID SWAB, URINE SPECIMEN COLLECTED. LAB CALLED FOR VEGETABLE FARMING SUPERVISOR.
--- NOTE | 2021-07-25 09:39 | NUR ---
OFF TRACK BETTING MANAGER AT BEDSIDE FOR BLOOD DRAW.
[2021-07-25 10:11] LABS: BASOPHILS % (AUTO) 0.4 % (0.0-2.0); EOSINOPHILS % (AUTO) 2.2 % (0.0-6.0); HEMATOCRIT 46 % (39-51); HEMOGLOBIN 15.3 g/dL (13.5-17.5); LYMPHOCYTES # (AUTO) 1.9 K/uL (0.8-4.8); LYMPHOCYTES % (AUTO) 48.9 % (20.0-44.0); MEAN CORPUSCULAR HGB CONC 33 g/dl (31.0-36.0); MEAN CORPUSCULAR VOLUME 95 fL (80-96); MONOCYTES # (AUTO) 0.4 K/uL (0.1-1.30); MONOCYTES % (AUTO) 10.5 % (2.0-12.0); NEUTROPHILS # (AUTO) 1.5 K/uL (1.8-8.9); PLATELET COUNT (AUTO) 188 K/uL (150-450); RED BLOOD CELL COUNT(AUTO) 4.84 MIL/uL (4.5-6.0); WHITE BLOOD COUNT (AUTO) 3.9 K/uL (4.3-11.0)
[2021-07-25 10:24] LABS: BILIRUBIN,URINE SMALL (NEGATIVE); COLOR,URINE YELLOW (YELLOW); LEUKOCYTE ESTERASE ,URINE NEGATIVE (NEGATIVE); NITRITE, URINE NEGATIVE (NEGATIVE); PROTEIN,URINE NEGATIVE (NEGATIVE); UGLUCOSE NEGATIVE (NEGATIVE); UROBILINOGEN,URINE 0.2 EU/dL (0.2)
[2021-07-25 10:29] LABS: CALCIUM, SERUM 9.4 mg/dL (8.5-10.1); CARBON DIOXIDE 27 mmol/L (21-32); CHLORIDE 103 mmol/L (98-107); GLUCOSE 74 mg/dL (74-106); POTASSIUM 4.2 mmol/L (3.5-5.1); SODIUM SERUM 135 mmol/L (136-145); UREA NITROGEN, BLOOD 12 mg/dL (7-18)
[2021-07-25 10:35] LABS: ALANINE AMINOTRANSFERASE 30 U/L (12-78); ALBUMIN 3.7 g/dL (3.4-5.0); ALCOHOL, BLOOD < 3 mg/dL (0-0); ALKALINE PHOSPHATASE 71 U/L (46-116); ASPARTATE AMINOTRANSFERASE 29 U/L (15-37); BILIRUBIN,DIRECT 0.1 mg/dL (0.0-0.2); BILIRUBIN,TOTAL 0.6 mg/dL (0.2-1.0); TOTAL PROTEIN, SERUM 8.2 g/dL (6.4-8.2)
[2021-07-25 10:42] LABS: ACETAMINOPHEN < 2 ug/ml (10-30)
[2021-07-25 11:53] LABS: BACTERIA,URINE None seen /HPF (None Seen); MUCUS,URINE Rare /LPF (None Seen); RBC,URINE 0-2 /HPF (0-2); SQUAMOUS EPITHELIAL CELL,UR None Seen /HPF (None Seen)
--- NOTE | 2021-07-25 12:15 | NUR ---
LUNCH TRAY PROVIDED
--- NOTE | 2021-07-25 13:03 | NUR ---
to [facility]; accepted by Leslie ANDERSON in charge- reported given by Michael ANDERSON
[2021-07-25 13:05] VITALS: BP 114/70
== END 2021-07-25 13:06 ==
LOC: ER 09:13
DX: R45.851 Suicidal ideations (principal); Z20.822 Contact with and (suspected) exposure to COVID-19
CPT/HCPCS: 36415; 80048; 80076; 80143; 80307; 80320; 81001; 85025; 87426; 99285; C9803; G0480

== ENCOUNTER 2023-05-26 20:00 | Emergency (ER) | payer OTHER ==
[~2023-05-26] VITALS: Ht 175.3 cm; Wt 83.9 kg
[2023-05-26 21:21] LABS: BASOPHILS % (AUTO) 0.5 % (0.0-2.0); EOSINOPHILS # (AUTO) 0.1 K/uL (0.0-0.7); EOSINOPHILS % (AUTO) 1.6 % (0.0-6.0); HEMATOCRIT 30 % (39-51); HEMOGLOBIN 9.2 g/dL (13.5-17.5); LYMPHOCYTES # (AUTO) 2.4 K/uL (0.8-4.8); LYMPHOCYTES % (AUTO) 57.5 % (20.0-44.0); MEAN CORPUSCULAR HEMOGLOBIN 23 PG (26.0-33.0); MEAN CORPUSCULAR HGB CONC 31 g/dl (31.0-36.0); MEAN CORPUSCULAR VOLUME 73 fL (80-96); MONOCYTES # (AUTO) 0.3 K/uL (0.1-1.30); MONOCYTES % (AUTO) 8.1 % (2.0-12.0); NEUTROPHILS # (AUTO) 1.4 K/uL (1.8-8.9); NEUTROPHILS % (AUTO) 32.3 % (43.0-81.0); PLATELET COUNT (AUTO) 207 K/uL (150-450); RED BLOOD CELL COUNT(AUTO) 4.08 MIL/uL (4.5-6.0); RED CELL DISTRIBUTION WIDTH 16.6 % (11.5-15.0); WHITE BLOOD COUNT (AUTO) 4.2 K/uL (4.3-11.0)
[2023-05-26 21:28] LABS: APPEARANCE,URINE CLEAR (CLEAR); BILIRUBIN,URINE NEGATIVE (NEGATIVE); BLOOD, URINE NEGATIVE Ery/uL (NEGATIVE); COLOR,URINE YELLOW (YELLOW); KETONES,URINE NEGATIVE (NEGATIVE); LEUKOCYTE ESTERASE ,URINE NEGATIVE (NEGATIVE); NITRITE, URINE NEGATIVE (NEGATIVE); PROTEIN,URINE NEGATIVE (NEGATIVE); UGLUCOSE NEGATIVE (NEGATIVE); UROBILINOGEN,URINE 0.2 EU/dL (0.2)
[2023-05-26 21:38] LABS: AMPHETAMINE, URINE NEGATIVE (NEGATIVE); BARBITURATE, URINE NEGATIVE (NEGATIVE); BENZODIAZEPINE, URINE NEGATIVE (NEGATIVE); CANNABINOID, URINE NEGATIVE (NEGATIVE); COCCAINE, URINE NEGATIVE (NEGATIVE); OPIATE, URINE NEGATIVE (NEGATIVE); PHENCYCLIDINE SCREEN,URINE NEGATIVE (NEGATIVE)
[2023-05-26 21:42] LABS: CALCIUM, SERUM 8.6 mg/dL (8.5-10.1); CARBON DIOXIDE 26 mmol/L (21-32); CHLORIDE 102 mmol/L (98-107); CREATININE 0.8 mg/dL (0.6-1.3); GLUCOSE 100 mg/dL (74-106); POTASSIUM 3.6 mmol/L (3.5-5.1); SODIUM SERUM 135 mmol/L (136-145); UREA NITROGEN, BLOOD 9 mg/dL (7-18)
[2023-05-26 22:12] LABS: ACETAMINOPHEN <10 ug/ml (10-30); ALANINE AMINOTRANSFERASE 23 U/L (12-78); ALCOHOL, BLOOD < 3 mg/dL (0-10); ALKALINE PHOSPHATASE 91 U/L (46-116); ASPARTATE AMINOTRANSFERASE 38 U/L (15-37); BILIRUBIN,DIRECT 0.1 mg/dL (0.0-0.2); BILIRUBIN,TOTAL 0.2 mg/dL (0.2-1.0); SALICYLATE 2.2 mg/dL (2.8-20.0); TOTAL PROTEIN, SERUM 8.5 g/dL (6.4-8.2)
[2023-05-27 10:12] VITALS: BP 120/78; TEMP 97.9; O2SAT 98
== END 2023-05-27 10:13 ==
LOC: ER 20:06
DX: R45.851 Suicidal ideations (principal); F17.200 Nicotine dependence, unspecified, uncomplicated; Z88.8 Allergy status to other drugs, medicaments and biological substances; Z59.00 Homelessness unspecified; Z20.822 Contact with and (suspected) exposure to COVID-19
CPT/HCPCS: 99285; 85025; 80048; 80076; 81003; 36415; 87426; 80143; 80320; 80307; L0172; G0480